=== PATIENT | male | born 1990 | race Caucasian/White ===

== ENCOUNTER 2018-12-05 16:46 | Outpatient (REF) | payer MEDICAID, SELFPAY ==
--- NOTE | 2018-12-05 15:55 | SKI_PTH ---
PATIENT: Brenden Calvillo LOC: [facility] U#:[id number] AGE/SX: 28/M ROOM: RE12/05/[address]: Tammy Lobo : 1990 BED: DIS: 12/05/2018 SPEC #: [id number] RECD: 12/06/18 12:33 STATUS: APRIL REBrandon #: [id number] AMENA: 12/05/18 15:[address]: Tammy Lobo DEPT: Surgical Specimen RECD BY: Norma Hull Tissues: 1 - SKIN BIOPSY(SHAVE/PUNCH) Procedures: SKIN LEVEL 4 Comments: [id number]
== END 2018-12-05 17:06 ==
LOC: NCHCN 16:46
PROVIDERS: Visit Provider Family Medicine
DX: L72.8 Other follicular cysts of the skin and subcutaneous tissue (principal)
CPT/HCPCS: 88305

== ENCOUNTER 2024-03-15 14:57 | Outpatient (REF) | payer MEDICAID, SELFPAY ==
[2024-03-15 21:04] LABS: ALT 20 U/L (16-63); AST 17 U/L (15-37); Albumin 4.6 g/dL (3.4-5.0); Alkaline Phosphatase 66 U/L (46-116); Anion Gap 6.1 mmol/L (3-11); BUN 20 mg/dL (7-18); Bilirubin, Total 0.47 mg/dL (0.2-1.0); CO2 30.9 mmol/L (21.0-32.0); CREATININE 1.1 mg/dL (0.70-1.30); Calcium 9.7 mg/dL (8.5-10.1); Calculated LDL 141 mg/dL (<100); Chloride 104 mmol/L (98-107); Cholesterol 260 mg/dL (<200); Glucose 87 mg/dL (74-106); HDL Cholesterol 73 mg/dL (40-60); Potassium 4.9 mmol/L (3.5-5.1); Sodium 141 mmol/L (136-145); Total Protein 7.9 g/dL (6.4-8.2); Triglyceride 231 mg/dL (<150)
== END 2024-03-15 14:58 | disposition home or self-care (01) ==
LOC: NCHCN 14:57
PROVIDERS: Visit Provider Family Medicine
DX: Z00.00 Encounter for general adult medical examination without abnormal findings (principal)
CPT/HCPCS: 80053; 80061